=== PATIENT | male | born 1940 | race Caucasian/White ===

== ENCOUNTER 2022-07-11 13:36 | Outpatient (CLI) | payer MEDICARE, OTHER, SELFPAY | END 2022-07-11 13:37 | disposition home or self-care (01) | LOC: WOUND 13:40 | PROVIDERS: PCP Family Medicine; Visit Provider Nurse Practitioner Family | DX: I87.311 Chronic venous hypertension (idiopathic) with ulcer of right lower extremity (principal); L97.812 Non-pressure chronic ulcer of other part of right lower leg with fat layer exposed; I83.012 Varicose veins of right lower extremity with ulcer of calf; I89.0 Lymphedema, not elsewhere classified; I87.2 Venous insufficiency (chronic) (peripheral) | CPT/HCPCS: 11042; 99203 ==

== ENCOUNTER 2022-07-18 14:23 | Outpatient (CLI) | payer MEDICARE, OTHER, SELFPAY | END 2022-07-18 14:24 | disposition home or self-care (01) | LOC: WOUND 14:23 | PROVIDERS: PCP Family Medicine; Visit Provider Nurse Practitioner Family | DX: I87.311 Chronic venous hypertension (idiopathic) with ulcer of right lower extremity (principal); I87.2 Venous insufficiency (chronic) (peripheral); I89.0 Lymphedema, not elsewhere classified; L97.812 Non-pressure chronic ulcer of other part of right lower leg with fat layer exposed | CPT/HCPCS: 11042 ==

== ENCOUNTER 2022-07-25 14:30 | Outpatient (CLI) | payer MEDICARE, OTHER, SELFPAY | END 2022-07-25 14:31 | disposition home or self-care (01) | LOC: WOUND 14:31 | PROVIDERS: PCP Family Medicine; Visit Provider Nurse Practitioner Family | DX: I87.311 Chronic venous hypertension (idiopathic) with ulcer of right lower extremity (principal); I87.2 Venous insufficiency (chronic) (peripheral); I89.0 Lymphedema, not elsewhere classified; L97.812 Non-pressure chronic ulcer of other part of right lower leg with fat layer exposed | CPT/HCPCS: 11042 ==

== ENCOUNTER 2022-08-01 14:35 | Outpatient (CLI) | payer MEDICARE, OTHER, SELFPAY | END 2022-08-01 14:36 | disposition home or self-care (01) | LOC: WOUND 14:35 | PROVIDERS: PCP Family Medicine; Visit Provider Nurse Practitioner Family | DX: I87.311 Chronic venous hypertension (idiopathic) with ulcer of right lower extremity (principal); L97.812 Non-pressure chronic ulcer of other part of right lower leg with fat layer exposed; I87.2 Venous insufficiency (chronic) (peripheral); I89.0 Lymphedema, not elsewhere classified | CPT/HCPCS: 11042 ==

== ENCOUNTER 2022-08-08 14:32 | Outpatient (CLI) | payer MEDICARE, OTHER, SELFPAY | END 2022-08-08 14:33 | disposition home or self-care (01) | LOC: WOUND 14:32 | PROVIDERS: PCP Family Medicine; Visit Provider Nurse Practitioner Family | DX: I87.313 Chronic venous hypertension (idiopathic) with ulcer of bilateral lower extremity (principal); L97.812 Non-pressure chronic ulcer of other part of right lower leg with fat layer exposed; L97.829 Non-pressure chronic ulcer of other part of left lower leg with unspecified severity | CPT/HCPCS: 11042 ==

== ENCOUNTER 2022-08-15 14:27 | Outpatient (CLI) | payer MEDICARE, OTHER, SELFPAY | END 2022-08-15 14:28 | disposition home or self-care (01) | LOC: WOUND 14:28 | PROVIDERS: PCP Family Medicine; Visit Provider Nurse Practitioner Family | DX: I87.311 Chronic venous hypertension (idiopathic) with ulcer of right lower extremity (principal); L97.812 Non-pressure chronic ulcer of other part of right lower leg with fat layer exposed | CPT/HCPCS: 11042 ==

== ENCOUNTER 2022-08-22 14:37 | Outpatient (CLI) | payer MEDICARE, OTHER, SELFPAY | END 2022-08-22 14:38 | disposition home or self-care (01) | LOC: WOUND 14:38 | PROVIDERS: PCP Family Medicine; Visit Provider Nurse Practitioner Family | DX: L97.812 Non-pressure chronic ulcer of other part of right lower leg with fat layer exposed; S81.802A Unspecified open wound, left lower leg, initial encounter; I87.311 Chronic venous hypertension (idiopathic) with ulcer of right lower extremity | CPT/HCPCS: 97597 ==

== ENCOUNTER 2022-08-29 14:29 | Outpatient (CLI) | payer MEDICARE, OTHER, SELFPAY | END 2022-08-29 14:30 | disposition home or self-care (01) | LOC: WOUND 14:30 | PROVIDERS: PCP Family Medicine; Visit Provider Nurse Practitioner Family | DX: I87.313 Chronic venous hypertension (idiopathic) with ulcer of bilateral lower extremity (principal); L97.822 Non-pressure chronic ulcer of other part of left lower leg with fat layer exposed; L97.812 Non-pressure chronic ulcer of other part of right lower leg with fat layer exposed; I87.2 Venous insufficiency (chronic) (peripheral) | CPT/HCPCS: 11042 ==

== ENCOUNTER 2022-09-12 14:27 | Outpatient (CLI) | payer MEDICARE, OTHER, SELFPAY | END 2022-09-12 14:28 | disposition home or self-care (01) | LOC: WOUND 14:27 | PROVIDERS: PCP Family Medicine; Visit Provider Nurse Practitioner Family | DX: I87.313 Chronic venous hypertension (idiopathic) with ulcer of bilateral lower extremity (principal); L97.812 Non-pressure chronic ulcer of other part of right lower leg with fat layer exposed; L97.822 Non-pressure chronic ulcer of other part of left lower leg with fat layer exposed; I89.0 Lymphedema, not elsewhere classified | CPT/HCPCS: 97597 ==

== ENCOUNTER 2022-09-19 13:57 | Outpatient (CLI) | payer MEDICARE, OTHER, SELFPAY | END 2022-09-19 13:58 | disposition home or self-care (01) | LOC: WOUND 13:57 | PROVIDERS: PCP Family Medicine; Visit Provider Nurse Practitioner Family | DX: I87.313 Chronic venous hypertension (idiopathic) with ulcer of bilateral lower extremity (principal); L97.822 Non-pressure chronic ulcer of other part of left lower leg with fat layer exposed; L97.812 Non-pressure chronic ulcer of other part of right lower leg with fat layer exposed | CPT/HCPCS: 11042; 97597 ==

== ENCOUNTER 2022-09-26 14:03 | Outpatient (CLI) | payer MEDICARE, OTHER, SELFPAY | END 2022-09-26 14:04 | disposition home or self-care (01) | LOC: WOUND 14:03 | PROVIDERS: PCP Family Medicine; Visit Provider Nurse Practitioner Family | DX: I87.313 Chronic venous hypertension (idiopathic) with ulcer of bilateral lower extremity (principal); L97.812 Non-pressure chronic ulcer of other part of right lower leg with fat layer exposed; L97.822 Non-pressure chronic ulcer of other part of left lower leg with fat layer exposed; I89.0 Lymphedema, not elsewhere classified | CPT/HCPCS: 11042 ==

== ENCOUNTER 2022-10-03 13:55 | Outpatient (CLI) | payer MEDICARE, OTHER, SELFPAY | END 2022-10-03 13:56 | disposition home or self-care (01) | LOC: WOUND 13:55 | PROVIDERS: PCP Family Medicine; Visit Provider Nurse Practitioner Family | DX: I87.313 Chronic venous hypertension (idiopathic) with ulcer of bilateral lower extremity (principal); L97.812 Non-pressure chronic ulcer of other part of right lower leg with fat layer exposed; L97.822 Non-pressure chronic ulcer of other part of left lower leg with fat layer exposed; I89.0 Lymphedema, not elsewhere classified | CPT/HCPCS: 97597 ==

== ENCOUNTER 2022-10-10 13:58 | Outpatient (CLI) | payer MEDICARE, OTHER, SELFPAY | END 2022-10-10 13:59 | disposition home or self-care (01) | LOC: WOUND 13:59 | PROVIDERS: PCP Family Medicine; Visit Provider Nurse Practitioner Family | DX: I87.313 Chronic venous hypertension (idiopathic) with ulcer of bilateral lower extremity (principal); L97.812 Non-pressure chronic ulcer of other part of right lower leg with fat layer exposed; L97.822 Non-pressure chronic ulcer of other part of left lower leg with fat layer exposed | CPT/HCPCS: 97597 ==

== ENCOUNTER 2022-10-24 08:57 | Outpatient (CLI) | payer MEDICARE, OTHER, SELFPAY | END 2022-10-24 08:58 | disposition home or self-care (01) | LOC: WOUND 08:58 | PROVIDERS: PCP Family Medicine; Visit Provider Nurse Practitioner Family | DX: I87.313 Chronic venous hypertension (idiopathic) with ulcer of bilateral lower extremity (principal); L97.812 Non-pressure chronic ulcer of other part of right lower leg with fat layer exposed; L97.822 Non-pressure chronic ulcer of other part of left lower leg with fat layer exposed | CPT/HCPCS: 11042; 97597 ==

== ENCOUNTER 2022-11-07 11:26 | Outpatient (CLI) | payer MEDICARE, OTHER, SELFPAY | END 2022-11-07 11:27 | disposition home or self-care (01) | LOC: WOUND 11:27 | PROVIDERS: PCP Family Medicine; Visit Provider Nurse Practitioner Family | DX: I87.313 Chronic venous hypertension (idiopathic) with ulcer of bilateral lower extremity (principal); L97.812 Non-pressure chronic ulcer of other part of right lower leg with fat layer exposed; L97.822 Non-pressure chronic ulcer of other part of left lower leg with fat layer exposed | CPT/HCPCS: 11042 ==

== ENCOUNTER 2023-03-12 21:27 | Emergency (ER) | payer MEDICARE, OTHER, SELFPAY ==
[2023-03-12 21:34] VITALS: BP 93/63; PULSE 83; RESP 16; TEMP 36.8; O2SAT 99
--- NOTE | 2023-03-12 22:06 | ED.NURSE ---
DISPLAYER cleaning wound
[2023-03-12 23:26] VITALS: BP 105/74; PULSE 74; RESP 16; TEMP 36.7; O2SAT 99
[2023-03-12] MEDS: TETANUS/DIPHTH/PERTUSSIS 0.5 ML SYRINGE IM (23:27)
[2023-03-12 23:48] VITALS: BP 105/74; PULSE 74; RESP 16; TEMP 36.7
--- NOTE | 2023-04-01 11:05 | ED.GENADULT ---
HPI - General Adult General Chief complaint: Animal Bite Stated complaint: cat bite Time Seen by Provider: 03/12/23 22:44 History of Present Illness HPI narrative: pt was cleaning cat. cat had stepped on a sticky mouse trap. cat is house cat, 6 months old. cat is current on shots. Pt was bit on wrist while cleaning the cat. 82-year-old man presenting with spouse was also sustained injury by kitten, to the emergency department after sustaining a cat bite. He is not complaining of pain. Underlying history of amyloidosis and restrictive lung disease also affecting cardiac. Is with some degree of hospice designation. This is a young cat in their home that is fully vaccinated. While attempting to clean and extricate said cat from a sticky mouse trap it did manage to bite his right hand. They are here knowing tenuous health status and potential for cat bites becoming infected. Related Data Allergies Allergy/AdvReac Type Severity Reaction Status Date / Time No Known Drug Allergies Allergy Verified 03/12/23 21:34 Review of Systems Status of ROS: Reports: 6 or more systems reviewed and unremarkable except as noted in History and below PFSH PFS Social History Smoking Status: Never smoker Non-prescribed substance use: denies use Exam Narrative: Exam Narrative: Pleasant. NAD. Mildly labored in breathing. Moving all extremities without difficulty. Well-perfused. Intradermal bruising noted particular in the right forearm. There are some scratches and small puncture wounds over the right wrist. There is 1 in particular at the MCP joint near the tendon of the right thumb I which I would have more concern. No particular swelling or evidence of hematoma. Moving all joints with good strength without difficulty. Const: Documenting provider has reviewed patient's vital signs: yes Course Vital Signs Vital signs: Initial Vital Signs Temperature 98.3 F 03/12/23 21:34 Temperature Source Temporal Artery Scan 03/12/23 21:34 Pulse Rate 83 03/12/23 21:34 Pulse Rhythm Regular 03/12/23 21:34 Respiratory Rate 16 03/12/23 21:34 Blood Pressure 93/63 03/12/23 21:34 Blood Pressure Mean 73 03/12/23 21:34 Blood Pressure Position Sitting 03/12/23 21:34 Pulse Oximetry 99 03/12/23 21:34 Oxygen Delivery Method Room Air 03/12/23 21:34 Vital Signs Temperature 98.3 F 03/12/23 21:34 Pulse Rate 83 03/12/23 21:34 Respiratory Rate 16 03/12/23 21:34 Blood Pressure 93/63 03/12/23 21:34 Pulse Oximetry 99 03/12/23 21:34 Oxygen Delivery Method Room Air 03/12/23 21:34 Temperature 98.0 F 03/12/23 23:48 Pulse Rate 74 03/12/23 23:48 Respiratory Rate 16 03/12/23 23:48 Blood Pressure 105/74 03/12/23 23:48 Pulse Oximetry 99 03/12/23 23:26 Oxygen Delivery Method Room Air 03/12/23 23:26 Medical Decision Making MDM Narrative Medical decision making narrative: Given health status I think it would be prudent to offer antibiotics, particularly as injury involves the hand and near tendon/dorsum of the finger. They did clean these wounds already. No repair is necessary. See patient discharge plan Discharge Plan Discharge Clinical Impression: Cat bite of hand Patient Disposition: Home w/ Parent or Adult Condition: Stable Additional Instructions: Just wash with soap and water daily as usual. Elevate for comfort. Depending on other medical recommendations can take ibuprofen or acetaminophen for pain. Might want to apply ice packs. Initiate Augmentin here today from [facility]. If after 5 days does not appear to be red swollen or irritated in any significant way, can discontinue Augmentin at that point. Follow Up/Referrals: Jaspal Spivey MD [Primary Care Provider] - Stand Alone Forms: [employer] Info Instructions
== END 2023-03-12 23:48 | disposition home or self-care (01) ==
PROVIDERS: Emergency Provider Family Medicine; PCP Family Medicine
DX: S61.451A Open bite of right hand, initial encounter (principal); W55.01XA Bitten by cat, initial encounter
CPT/HCPCS: 90471; 90715; 99283; 99284

== ENCOUNTER 2024-02-14 10:13 | Emergency (ER) | payer MEDICARE, OTHER, SELFPAY ==
[2024-02-14 10:22] VITALS: BP 112/70; PULSE 87; RESP 16; TEMP 36.3; O2SAT 94; BMI 22.2
[2024-02-14 11:15] VITALS: BP 112/70; PULSE 87; RESP 16; TEMP 36.3
--- NOTE | 2024-02-14 11:17 | ED_ITS ---
HPI - Skin/Abscess/Foreign Bdy General Date Seen: 02/14/24 Chief complaint: Skin/Abscess/Foreign Body Stated complaint: bump behind left ear, pain, nausea Time Seen by Provider: 02/14/24 10:44 Source: patient and family Mode of arrival: ambulatory Limitations: no limitations History of Present Illness HPI narrative: Patient is an 83-year-old gentleman who presents here with the significant other for evaluation of a lump but behind the left angle of his jaw, it is painful swollen, and he is a little bit of nausea with this. He has not vomited he denies any fevers or chills, or any other swellings, never before had this no history of trauma or injury. 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 Of both Lasix and metolazone. He is trying to drink a lot of fluids. Does not notice this worsening when he smells food or eats food but admits to me that he does not really eat a lot. They have not done any medications for this i.e. pain medications, Onset (ago): day(s) Tetanus up to date: yes Severity: moderate Quality: aching Pain Consistency: constant Relieving factors: none Exacerbating factors: palpation Context: none Associated symptoms: nausea Treatments prior to arrival: none Related Data Allergies Allergy/AdvReac Type Severity Reaction Status Date / Time No Known Drug Allergies Allergy Verified 03/12/23 21:34 Review of Systems Status of ROS: Reports: 10 or more systems reviewed and unremarkable except as noted in History and below PFSH [facility] Social History Smoking Status: Never smoker How often do you have a drink containing alcohol: never AUDIT-C Alcohol total score: 0 Non-prescribed substance use: denies use Exam Narrative: Exam Narrative: Patient is seen in room 5 he is in no apparent distress his vital signs are all listed in reasonable. Speaking to me normally his mouth opening is normal 3 finger widths. There is no trismus. Oropharynx is otherwise normal, the swelling is at the left angle the jaw consistent with his parotid gland. I do not see a stone along Stensen's duct, there is no pus protruding from the inner oral be you come mucosa. He is somewhat tender to palpate over the left side of his jaw, his tympanic membrane ear entirely normal and there is no lymphadenopathy noted over the left side or right side of his face. Const: Vital Signs, click to edit/add: Vital Signs - 24 hr 02/14/24 10:22 02/14/24 11:15 Temperature 97.4 F L 97.4 F L Pulse Rate [Pulse Oximeter] 87 87 Respiratory Rate 16 16 Blood Pressure [Ri ght Upper Arm] 112/70 112/70 Pulse Oximetry 94 Oxygen Delivery Me thod Room Air Documenting provider has reviewed patient's vital signs: yes Course Vital Signs Vital signs: Initial Vital Signs Temperature 97.4 F L 02/14/24 10:22 Temperature Source Temporal Artery Scan 02/14/24 10:22 Pulse Rate 87 02/14/24 10:22 Pulse Rhythm Regular 02/14/24 10:22 Respiratory Rate 16 02/14/24 10:22 Blood Pressure 112/70 02/14/24 10:22 Blood Pressure Mean 84 02/14/24 10:22 Blood Pressure Position Sitting 02/14/24 10:22 Pulse Oximetry 94 02/14/24 10:22 Oxygen Delivery Method Room Air 02/14/24 10:22 Vital Signs Temperature 97.4 F L 02/14/24 10:22 Pulse Rate 87 02/14/24 10:22 Respiratory Rate 16 02/14/24 10:22 Blood Pressure 112/70 02/14/24 10:22 Pulse Oximetry 94 02/14/24 10:22 Oxygen Delivery Method Room Air 02/14/24 10:22 Temperature 97.4 F L 02/14/24 11:15 Pulse Rate 87 02/14/24 11:15 Respiratory Rate 16 02/14/24 11:15 Blood Pressure 112/70 02/14/24 11:15 Pulse Oximetry 94 02/14/24 10:22 Oxygen Delivery Method Room Air 02/14/24 10:22 MDM - Skin/Abscess/Foreign Bdy MDM Narrative Medical decision making narrative: I discussed with him this is more consistent with parotid swelling than anything else, this could be a low level infection causing this, or it could be a stone, given his recent use of diuretics and did is dehydrating affective these. Also could be related to the amyloidosis but this crop up that fast. I think it would be reasonable given his vital signs in his desire to stay at home, that we could start him on Augmentin which is broad-spectrum along with some pain medication. They do have on emergency PAC for hospice at their house but then sure exactly how many meds medications are in there we will try some IR oxycodone along with the augment him and the Zofran for nausea. I have told him that if the swelling worse is the is trouble breathing, fevers chills nausea vomiting that he should come back and then further workup can be done, they were comfortable with this plan. Medical Records Attestation: I reviewed the patient's medical records. Discharge Plan Discharge Clinical Impression: Swelling of left parotid gland Patient Disposition: Home w/ Parent or Adult Condition: Stable Additional Instructions: Home, rest and use of medications as directed, I do believe there is swelling of your parotid gland. This could be a low level infection but more likely from dehydration, and possible stone. Sucking on lemon drops, in chewing gum is helpful, lots of water and rehydration solutions, as this is primarily an issue also with your diuretics that her taking. Prescriptions given for both the nausea medication, narcotic medication, and the antibiotic, if you have increasing fevers chills or other symptoms such as this then please come back, rx via [facility] Activity Level: Light activity Follow Up/Referrals: Jaspal Spivey MD [Primary Care Provider] - Stand Alone Forms: [employer] Info Instructions
== END 2024-02-14 11:20 | disposition home or self-care (01) ==
LOC: ED 11:17
PROVIDERS: Emergency Provider Family Medicine; PCP Family Medicine
DX: K11.8 Other diseases of salivary glands (principal)
CPT/HCPCS: 99283